=== PATIENT | male | born 1990 | race Caucasian/White ===

== ENCOUNTER 2018-11-30 12:54 | Emergency (ER) | payer MEDICAID ==
[~2018-11-30] VITALS: Ht 157.5 cm; Wt 57.0 kg
[2018-11-30 12:58] VITALS: BP 127/78; PULSE 98; RESP 18; Ht 157.5 cm; Wt 57.0 kg
--- NOTE | 2018-11-30 15:16 | ERD ---
ER Documentation Chief Complaint Chief Complaint LEFT FOOT PAIN HPI This is a 28-year-old male with a nonsignificant past medical history presents ED with complaints of left foot drop x1-1/2 years. Patient denies any fall or injury to account for the weakness of the left foot. Patient states that he has not been seen by a medical professional regarding this problem. Patient admits to some irritation along the left lateral knee at times associated with the foot drop. Denies back pain, bowel/bladder incontinence, saddle paresthesias, abdominal pain, nausea, vomiting, diarrhea, constipation, tingling, numbness, lack sensation, fever, chills, history of IV drug abuse and all other symptoms. ROS All systems reviewed and are negative except as per history of present illness. PMhx/Soc Hx Alcohol Use: No Hx Substance Use: No Hx Tobacco Use: No Smoking Status: Never smoker Physical Exam Vitals Vital Signs Date Temp Pulse Resp B/P (MAP) Pulse Ox O2 O2 Flow FiO2 Time Delivery Rate 11/30/18 98.0 98 18 127/78 99 12:58 (94) Physical Exam Const: No acute distress Head: Atraumatic Eyes: Normal Conjunctiva ENT: Normal External Ears, Nose and Mouth. Neck: Full range of motion. No meningismus. Resp: Clear to auscultation bilaterally Cardio: Regular rate and rhythm, no murmurs Abd: Soft, non tender, non distended. Normal bowel sounds Skin: No petechiae or rashes Back: No midline or flank tenderness Ext: No cyanosis, or edema Lower Extremity -left Skin: No laceration Compartments: Soft Motor: Full active range of motion hip/knee/ankle, unable to dorsiflex left foot Sensation: Intact to light touch FDWS/MF/LF/P surfaces. Bones: Nontender pelvis/knee/proximal tibia/ malleoli/foot Joints: No effusion or laxity Pulses/Perfusion: 2+ DP, Capillary refill < 2 seconds Neur: Awake and alert Psych: Normal Mood and Affect Procedures/MDM ER COURSE: The patient was stable throughout ED course. I kept the patient and/or family informed of laboratory and diagnostic imaging results throughout the emergency room course. The patient was promptly evaluated and a treatment plan was devised based on H&P and other data. This plan was discussed with the patient who agreed and had no further questions or concerns prior to discharge. MEDICAL DECISION MAKING: This is a 28-year-old male with a nonsignificant past medical history presents ED with complaints of left foot drop x1.5 years. Given patient's irritation and pain sometimes along the left lateral knee. This is likely an irritation of the peroneal nerve which has caused the foot drop. Patient was advised to follow-up with director of orthopedics regarding left foot drop. I discussed case with my overseeing physician Dr. Vaca and she agrees with plan of close outpatient follow-up and she advises no advanced imaging is necessary at this time given no trauma or injury or spinal cord symptoms. History and physical examination other data not consistent with emergent processes including but not limited to cauda equina syndrome, stroke, CVA, fracture, dislocation, tendon rupture, ischemia, compartment syndrome, septic joint, avascular necrosis, osteomyelitis, necrotizing fasciitis, septic joint, septic arthritis, or other emergent conditions. Patient's vitals are stable and can be managed outpatient with close follow-up. Advised patient to follow-up with primary care in the next 48 hours. Return to ED with any worsening symptoms. DISPOSITION PLAN: We discussed follow up with the patient's primary care doctor within 24 to 48 hours. Patient counseled regarding my diagnostic impression and care plan. Prior to discharge all questions answered. Pt agrees with treatment plan and understands strict return precautions. Precautionary instructions provided including instructions to return to the ER if not improving or for any worsening or changing symptoms or concerns. ExitCare instructions provided. Prior to discharge, patients vital signs have been reviewed SPECIALIST FOLLOW UP RECOMMENDED: director of orthopedics Patient has been advised to follow up with primary care in 1-2 days. Disclaimer: Inadvertent spelling and grammatical errors are likely due to EHR/dictation software use and do not reflect on the overall quality of patient care. Also, please note that the electronic time recorded on this note does not necessarily reflect the actual time of the patient encounter. Departure Diagnosis: Primary Impression: Left foot drop Condition: Stable Patient Instructions: Foot Drop Referrals: YESI DANIELLE MD,FRED CERRATO,MARION CYR,DONELL DEXTER,VERÓNICA SAN,LEVI YAO,[facility] Urgent Care 7 a.m.- 11 p.m. Every Day of the Week NO APPOINTMENT OR AUTHORIZATION NEEDED [facility] Hours: Mon-Fri 9:00 AM - 5:00 PM Additional Instructions: Patient advised to return to the ED immediately for new or worsening symptoms. Patient advised to follow up with primary care provider in the next 24-48 hours. Patient verbalized understanding and agrees with treatment plan and course of action. If patient has no primary care they may follow up with one of the community cl inics listed on the following page or one of the options listed below [facility] + [address] [address] or [facility] [address] [place] [address] or [facility] [address] [place] [address] DIO SIMON PA-C Nov 30, 2018 15:16
== END 2018-11-30 15:54 | disposition home or self-care (01) ==
LOC: FTE 12:54
DX: M21.372 Foot drop, left foot (principal)
CPT/HCPCS: 99282